=== PATIENT | male | born 1985 | race Caucasian/White ===

== ENCOUNTER 2016-03-11 11:17 | Emergency (ER) | payer OTHER ==
[2016-03-11 11:25] VITALS: BP 130/68; PULSE 73; TEMP 97.8; BMI 28.5
[2016-03-11] MEDS ORDERED: KETOROLAC TROMETHAMINE 60 MG/2 ML VIAL IM ONE (11:58)
[2016-03-11] MEDS ORDERED: diazePAM 5 MG TABLET PO ONE (11:59)
[2016-03-11] MEDS ORDERED: KETOROLAC TROMETHAMINE 60 MG/2 ML VIAL ONE (11:59)
[2016-03-11] MEDS ORDERED: diazePAM 5 MG TABLET ONE (11:59)
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
== END 2016-03-11 13:07 | disposition home or self-care (01) ==
LOC: JERFT 11:17
PROC: 3E0233Z Introduction of Anti-inflammatory into Muscle, Percutaneous Approach (ICD-10-PCS; principal; 2016-03-11)
DX: M54.5 Low back pain (principal); G89.29 Other chronic pain; V89.2XXS Person injured in unspecified motor-vehicle accident, traffic, sequela
CPT/HCPCS: 99281-25